=== PATIENT | female | born 1930 | race Caucasian/White ===

== ENCOUNTER 2017-01-03 17:37 | Inpatient (IN) | payer MEDICARE, BC ==
[~2017-01-03] VITALS: Ht 165.1 cm; Wt 48.5 kg
[~2017-01-03 17:37] MED LIST: FLONASE NASAL S16 GM NS; MUCINEX1200 MG PO; PREDNISONE20 MG PO; PREMARIN .3MG0.3 MG PO; SYNTHROID0.05 MG/TA PO; TOPROL XL 25MG25 MG PO; ZITHROMAX 250M250 MG PO; ZOFRAN 4MG T4 MG/TAB PO; ZYRTEC 10MG10 MG PO
[2017-01-03 18:49] LABS: MEAN CELL VOLUME 91 fl (80.0-100.0); MEAN CORPUSCULAR HGB CONC 34 g/dl (33.0-37.0); MEAN PLATELET VOLUME 10.8 fl (7.4-10.4); PLATELET COUNT 252 K/mm3 (130-400); RED BLOOD COUNT 3.83 M/mm3 (4.10-5.30); REDCELL DISTRIBUTION WIDTH-CV 13.4 % (11.5-14.5); WHITE BLOOD COUNT 13.8 K/mm3 (4.8-10.8)
[2017-01-03 18:53] LABS: ADD PATHOLOGY DIFF REVIEW NO; HEMOGLOBIN 11.8 g/dl (12.5-16.0); MEAN CORPUSCULAR HEMOGLOBIN 31 pg (27.0-31.0)
[2017-01-03 18:55] LABS: ADJUSTED CALCIUM 8.9 mg/dL (8.4-10.2); ALANINE AMINOTRANSFERASE 30 U/L (9-52); ALBUMIN 4.2 gm/dL (3.5-5.0); ALKALINE PHOSPHATASE 58 U/L (50-136); ANION GAP 9 mmol/L (7-16); BILIRUBIN,TOTAL 1.3 mg/dL (0.0-1.0); BLOOD UREA NITROGEN 16 mg/dL (7-17); C-REACTIVE PROTEIN 2.5 mg/dL (0.0-0.9); CALCIUM 9.1 mg/dL (8.4-10.2); CARBON DIOXIDE 26 mmol/L (22-30); CHLORIDE 94 mmol/L (98-107); CREATININE, serum 0.78 mg/dL (0.52-1.25); GLUCOSE 103 mg/dL (74-106); LIPASE 80 U/L (23-300); POTASSIUM 4.4 mmol/L (3.4-5.0); SODIUM 129 mmol/L (137-145); TOTAL PROTEIN 7.1 gm/dL (6.4-8.2)
[2017-01-03 19:04] LABS: TROPONIN-I < 0.012 ng/mL (0.000-0.034)
[2017-01-03 19:05] LABS: BAND 13 % (0-10); NEUTROPHILS 77 % (42.0-75.2); PLATELET ESTIMATE NORMAL (NORMAL); TOTAL CELLS COUNTED 100
[2017-01-03 19:06] LABS: STOMATOCYTE 1+
[2017-01-03 19:49] LABS: PH 7 (5-8); URINE APPEARANCE Hazy; URINE BILIRUBIN Negative (NEGATIVE); URINE BLOOD Negative (NEGATIVE); URINE COLOR Yellow; URINE GLUCOSE Negative (NEGATIVE); URINE KETONE 1+ (NEGATIVE); URINE UROBILINOGEN Negative (NEGATIVE)
[2017-01-03 19:52] LABS: SQUAMOUS EPITHELIAL 0-2 /hpf; URINE RBC 0-2 /hpf
[2017-01-03 20:14] VITALS: BP 105/56; PULSE 80
[2017-01-03] MEDS ORDERED: FOSAMAX 70MG TA70 MG PO (21:23)
[2017-01-03] MEDS ORDERED: CALCIUM 600MG+D1 TAB PO (21:24)
[2017-01-03] MEDS ORDERED: VITAMIN C500 MG PO (21:24)
[2017-01-03] MEDS ORDERED: COMPLETE SENIOR1 TA1 PO (21:25)
[2017-01-03] MEDS ORDERED: PROBIOTIC ACID1 EAC3 PO (21:25)
[2017-01-03 21:41] VITALS: BP 94/48; PULSE 69
[2017-01-03 23:10] VITALS: BP 109/53; PULSE 66; TEMP 98.4
[2017-01-04 03:09] VITALS: BP 108/53; BP 161/99; PULSE 72; TEMP 98.9
[2017-01-04 07:16] LABS: MEAN CELL VOLUME 93 fl (80.0-100.0); MEAN CORPUSCULAR HGB CONC 33 g/dl (33.0-37.0); PLATELET COUNT 241 K/mm3 (130-400); RED BLOOD COUNT 3.55 M/mm3 (4.10-5.30); REDCELL DISTRIBUTION WIDTH-CV 13.6 % (11.5-14.5); WHITE BLOOD COUNT 12.3 K/mm3 (4.8-10.8)
[2017-01-04 07:17] LABS: ADD PATHOLOGY DIFF REVIEW NO; HEMATOCRIT 33.1 % (37.0-47.0); MEAN CORPUSCULAR HEMOGLOBIN 31 pg (27.0-31.0)
[2017-01-04 07:26] LABS: CALCIUM 7.8 mg/dL (8.4-10.2); CREATININE, serum 0.7 mg/dL (0.52-1.25); POTASSIUM 3.9 mmol/L (3.4-5.0)
[2017-01-04 07:54] LABS: BAND 22 % (0-10); EOSINOPHIL 2 % (0-4); NEUTROPHILS 72 % (42.0-75.2); PLATELET ESTIMATE NORMAL (NORMAL); TOTAL CELLS COUNTED 100
[2017-01-04 08:01] VITALS: BP 130/67; PULSE 90; TEMP 98.9
[2017-01-04 11:53] VITALS: BP 103/49; PULSE 74; TEMP 98.4
[2017-01-04 15:05] VITALS: BP 102/49; PULSE 78; TEMP 98.4
[2017-01-04 19:03] VITALS: BP 114/50; PULSE 88; TEMP 98.5
[2017-01-04 22:50] VITALS: BP 110/50; PULSE 74; TEMP 98.3
[2017-01-05 03:11] VITALS: BP 122/61; PULSE 78; TEMP 97.8
[2017-01-05 06:10] LABS: BASO % 0.1 % (0.0-2.0); EOS # 0.3 (0.0-0.7); EOS % 4.4 % (0-4.0); GRAN # 5.1 (1.4-6.5); GRAN % 73.7 % (42.2-75.2); LYMPH # 0.9 (1.2-3.4); LYMPH % 13.6 % (20.0-51.0); MEAN CELL VOLUME 94 fl (80.0-100.0); MEAN CORPUSCULAR HGB CONC 33 g/dl (33.0-37.0); MEAN PLATELET VOLUME 11.1 fl (7.4-10.4); MONO # 0.5 (0.1-0.6); MONO % 7.3 % (1.7-9.3); PLATELET COUNT 195 K/mm3 (130-400); RED BLOOD COUNT 3.06 M/mm3 (4.10-5.30); WHITE BLOOD COUNT 6.9 K/mm3 (4.8-10.8)
[2017-01-05 06:21] LABS: HEMATOCRIT 28.6 % (37.0-47.0); HEMOGLOBIN 9.4 g/dl (12.5-16.0); MEAN CORPUSCULAR HEMOGLOBIN 31 pg (27.0-31.0); POTASSIUM 3.5 mmol/L (3.4-5.0)
[2017-01-05 06:32] LABS: CALCIUM 7.3 mg/dL (8.4-10.2); CREATININE, serum 0.67 mg/dL (0.52-1.25)
[2017-01-05 08:13] VITALS: BP 105/51; PULSE 79; TEMP 98.3
[2017-01-05] MEDS ORDERED: CEFTIN 250250 MG/TAB PO (12:06)
[2017-01-05 12:14] VITALS: BP 113/57; PULSE 72; TEMP 98.3
== END 2017-01-05 15:10 | disposition home or self-care (01) | DRG 690 ==
LOC: COL.ER 17:37 → MEDICAL 20:08
PROVIDERS: Emergency Medicine; Family Medicine; Internal Medicine; Nurse Practitioner Family
DX: N39.0 Urinary tract infection, site not specified (principal); E87.1 Hypo-osmolality and hyponatremia; I48.0 Paroxysmal atrial fibrillation; Z66 Do not resuscitate; R55 Syncope and collapse; E87.8 Other disorders of electrolyte and fluid balance, not elsewhere classified; D64.9 Anemia, unspecified; E86.0 Dehydration
CPT/HCPCS: 99232-AI; 99239; G0378; J0696; J7030; J7040